=== PATIENT | female | born 1950 | race Caucasian/White ===

== ENCOUNTER → 2016-11-22 | Outpatient (CLI) | payer MEDICARE ==
[~2016-11-22] MED LIST: BENADRYL25 M1 PO; FISH OIL1000 MG PO; MAXZIDE 50 MG-71 TAB PO; PEPCID AC20 M1 PO; POTASSIUM CL 110 MEQ PO; PREDNISONE20 MG PO; ZYRTEC-D 12HR 51 TER PO; water pill
== END ==
LOC: MC.RAD 10:39
DX: Z12.31 Encounter for screening mammogram for malignant neoplasm of breast (principal); D24.2 Benign neoplasm of left breast; D24.1 Benign neoplasm of right breast

== ENCOUNTER → 2017-12-01 | Outpatient (CLI) | payer MEDICARE | LOC: MC.RAD 09:40 | DX: Z12.31 Encounter for screening mammogram for malignant neoplasm of breast (principal) ==

== ENCOUNTER → 2018-12-06 | Outpatient (CLI) | payer MEDICARE | LOC: MC.RAD 09:18 | DX: Z12.31 Encounter for screening mammogram for malignant neoplasm of breast (principal); N63.10 Unspecified lump in the right breast, unspecified quadrant; N63.20 Unspecified lump in the left breast, unspecified quadrant ==

== ENCOUNTER → 2018-12-08 | Outpatient (CLI) | payer MEDICARE | LOC: MC.RAD 09:17 | DX: N63.10 Unspecified lump in the right breast, unspecified quadrant (principal); N63.20 Unspecified lump in the left breast, unspecified quadrant | CPT/HCPCS: G0279 ==

== ENCOUNTER → 2018-12-13 | Outpatient (CLI) | payer MEDICARE | LOC: MC.RAD 09:52 | DX: N63.14 Unspecified lump in the right breast, lower inner quadrant (principal); N63.20 Unspecified lump in the left breast, unspecified quadrant; Z98.82 Breast implant status ==

== ENCOUNTER 2019-06-19 04:43 | Observation (INO) | payer MEDICARE ==
[~2019-06-19] VITALS: Ht 162.6 cm; Wt 99.3 kg
[2019-06-19 05:06] LABS: BASO % 0.5 % (0.0-2.0); EOS # 0.2 (0.0-0.7); EOS % 1.9 % (0-4.0); GRAN # 4.5 (1.4-6.5); GRAN % 56.3 % (42.2-75.2); HEMATOCRIT 38.8 % (37.0-47.0); HEMOGLOBIN 12.8 g/dl (12.5-16.0); LYMPH # 2.7 (1.2-3.4); LYMPH % 33.3 % (20.0-51.0); MEAN CELL VOLUME 95 fl (80.0-100.0); MEAN CORPUSCULAR HEMOGLOBIN 31 pg (27.0-31.0); MEAN CORPUSCULAR HGB CONC 33 g/dl (33.0-37.0); MEAN PLATELET VOLUME 9.7 fl (7.4-10.4); MONO # 0.6 (0.1-0.6); MONO % 7.6 % (1.7-9.3); PLATELET COUNT 192 K/mm3 (130-400); REDCELL DISTRIBUTION WIDTH-CV 13.4 % (11.5-14.5)
[2019-06-19] MEDS ORDERED: COZAAR 25MG25 MG/TAB PO (05:08)
[2019-06-19 05:16] LABS: ALANINE AMINOTRANSFERASE 20 U/L (9-52); ALBUMIN 4.3 gm/dL (3.5-5.0); ALKALINE PHOSPHATASE 70 U/L (50-136); ANION GAP 9 mmol/L (7-16); AST,SGOT 27 U/L (15-37); BILIRUBIN,TOTAL 0.5 mg/dL (0.0-1.0); BLOOD UREA NITROGEN 23 mg/dL (7-17); CALCIUM 9.1 mg/dL (8.4-10.2); CARBON DIOXIDE 28 mmol/L (22-30); CHLORIDE 103 mmol/L (98-107); CREATININE, serum 0.95 (0.52-1.25); GLUCOSE 101 mg/dL (74-106); MAGNESIUM 1.9 mg/dL (1.6-2.3); POTASSIUM 3.5 mmol/L (3.4-5.0); SODIUM 141 mmol/L (137-145); TOTAL PROTEIN 6.9 gm/dL (6.4-8.2)
[2019-06-19 05:30] LABS: TROPONIN-I < 0.012 ng/mL (0.000-0.035)
[2019-06-19 05:31] LABS: COLLECTION METHOD CLEAN CATCH
[2019-06-19 05:39] LABS: MUCOUS Present /lpf; PH 5 (5-8); SQUAMOUS EPITHELIAL 0-2 /hpf; URINE APPEARANCE Hazy; URINE BACTERIA Rare /hpf; URINE BILIRUBIN Negative (NEGATIVE); URINE BLOOD Negative (NEGATIVE); URINE COLOR Yellow; URINE GLUCOSE Negative (NEGATIVE); URINE KETONE Negative (NEGATIVE); URINE LEUKOCYTE ESTERASE 3+ (NEGATIVE); URINE NITRATE Negative (NEGATIVE); URINE PROTEIN(semi-quant) Negative (NEGATIVE); URINE UROBILINOGEN Negative (NEGATIVE)
[2019-06-19 10:02] VITALS: BP 113/64; PULSE 67; TEMP 97.6
[2019-06-19] MEDS ORDERED: D3-5050000 IU (10:23)
--- NOTE | 2019-06-19 10:30 | NUR ---
Pt arrived to room 313 at this time, she is A/O x4. Her breathing is even and unlabored on RA. Pt denies SOB. No pain at this time. She denies N/T. Neuro checks intact and WNL. R arm restriction noted. LAC INT free from complications. Tele leads placed. POC discussed with patient, who will have MRI later today, will remain NPO until then.
[2019-06-19 11:32] VITALS: BP 106/60; PULSE 58; TEMP 98.3
--- NOTE | 2019-06-19 15:11 | NUR ---
Pt left for MRI at this time.
[2019-06-19 16:27] VITALS: BP 114/70; PULSE 68; TEMP 98.8
[2019-06-19] MEDS ORDERED: CIPRO 500MG TA500 MG PO (17:00)
--- NOTE | 2019-06-19 17:20 | NUR ---
Discharge paperwork reviewed with patient, all questions answered at this time. IV to LAC dc'd, catheter tip intact.
--- NOTE | 2019-06-19 17:46 | NUR ---
Pt walked out of facility at this time.
== END 2019-06-19 17:46 | disposition home or self-care (01) ==
LOC: COL.ER 04:43 → MEDICAL 07:51 → EDBEDREQ 08:43 → MEDICAL 17:46
PROVIDERS: Emergency Medicine; ADMIT Internal Medicine
DX: R53.1 Weakness (principal); I10 Essential (primary) hypertension; E78.5 Hyperlipidemia, unspecified; Z90.710 Acquired absence of both cervix and uterus; Z90.49 Acquired absence of other specified parts of digestive tract; Z85.828 Personal history of other malignant neoplasm of skin; Z92.3 Personal history of irradiation; Z85.3 Personal history of malignant neoplasm of breast
CPT/HCPCS: A4216; A9585; G0378; J0696; J1650; Q9967

== ENCOUNTER → 2020-03-20 | Outpatient (CLI) | payer MEDICARE ==
[~2020-03-20] MED LIST changes: +CIPRO 500MG TA500 MG PO; +COZAAR 25MG25 MG/TAB PO; +D3-5050000 IU
== END ==
LOC: MC.RAD 15:45
DX: Z12.31 Encounter for screening mammogram for malignant neoplasm of breast (principal); Z98.890 Other specified postprocedural states; Z98.82 Breast implant status

== ENCOUNTER 2021-03-28 23:40 | Emergency (ER) | payer MEDICARE ==
[~2021-03-28] VITALS: Ht 162.6 cm; Wt 87.3 kg
[2021-03-28 23:44] VITALS: TEMP 98.1
[2021-03-29] MEDS ORDERED: BACTRIM DS 8001 TAB PO (00:16)
[2021-03-29] MEDS ORDERED: DOXYCYCLINE 10100 MG PO (00:17)
[2021-03-29 00:29] VITALS: BP 131/77; PULSE 74
== END 2021-03-29 00:29 | disposition home or self-care (01) ==
LOC: COL.ER 23:40
DX: L03.113 Cellulitis of right upper limb (principal); Z85.828 Personal history of other malignant neoplasm of skin

== ENCOUNTER → 2021-04-21 | Outpatient (CLI) | payer MEDICARE ==
[~2021-04-21] MED LIST changes: +BACTRIM DS 8001 TAB PO; +DOXYCYCLINE 10100 MG PO
== END ==
LOC: MC.RAD 11:45
DX: Z12.31 Encounter for screening mammogram for malignant neoplasm of breast (principal)

== ENCOUNTER → 2022-04-23 | Outpatient (CLI) | payer MEDICARE | LOC: MC.RAD 11:01 | DX: Z12.31 Encounter for screening mammogram for malignant neoplasm of breast (principal) ==

== ENCOUNTER → 2024-05-29 | Outpatient (CLI) | payer MEDICARE | LOC: MC.RAD 07:15 | DX: Z12.31 Encounter for screening mammogram for malignant neoplasm of breast (principal) ==